=== PATIENT | female | born 1960 | race African-American/Black ===

== ENCOUNTER 2020-02-01 22:05 | Emergency (ER) | payer MEDICARE, SELFPAY ==
[2020-02-01 22:47] LABS: Bilirubin Negative (Negative); Blood, Urine Small (Negative); Clarity Slightly Cloudy (Clear); Glucose, Urine (Dipstick) Negative (Negative); Leukocyte Moderate (Negative); Nitrite Positive (Negative); Protein, Urine (Dipstick) Negative (Neg-Trace); Urobilinogen 0.2 mg/dL (Less than 2)
[2020-02-01 22:52] LABS: Bacteria/HPF 3+ HPF (None Seen); Squamous Epithelial 0-3 HPF (0-3)
== END 2020-02-01 23:05 | disposition home or self-care (01) ==
LOC: MADERS 22:05
DX: R30.0 Dysuria (principal); E78.5 Hyperlipidemia, unspecified; E78.00 Pure hypercholesterolemia, unspecified; E03.9 Hypothyroidism, unspecified; I10 Essential (primary) hypertension; J45.909 Unspecified asthma, uncomplicated; F17.210 Nicotine dependence, cigarettes, uncomplicated
CPT/HCPCS: 81003; 81015; 99283

== ENCOUNTER 2021-11-03 08:28 | Emergency (ER) | payer MEDICARE ==
[2021-11-03 09:31] LABS: ALT (SGPT) 14 U/L (8-55); AST (SGOT) 16 U/L (5-34); Albumin 4.6 g/dL (3.4-4.8); Alkaline Phosphatase 116 U/L (40-110); Anion Gap 15 mmol/L (10-20); BUN (Urea Nitrogen) 11 mg/dL (9.8-20.1); Bilirubin, Total 0.4 mg/dL (0.2-1.2); Calc. Creatinine Clearance 0 mL/min (70-130); Calcium 9.8 mg/dL (7.8-10.44); Carbon Dioxide 29 mmol/L (23-31); Chloride 101 mmol/L (98-107); Globulin 3.9 g/dL (2.4-3.5); Glucose 151 mg/dL (80-115); Lipase 4 U/L (8-78); Magnesium 1.9 mg/dL (1.6-2.6); Potassium 3.1 mmol/L (3.5-5.1); Protein, Total 8.5 g/dL (5.8-8.1); Sodium 142 mmol/L (136-145)
[2021-11-03 09:40] LABS: Eosinophils 1 % (0-10); Hemoglobin 15.2 g/dL (12.0-16.0); Lymphocytes 18 % (21-51); MDiff Complete? YES; Mean Corpuscular HGB CONC 30.8 g/dL (32.0-36.0); Mean Corpuscular Volume 84.1 fL (78.0-98.0); Mean Platelet Volume 7.7 fL (7.4-10.4); Monocytes 2 % (0-10); Neutrophil 65 % (42-75); Platelet Count 307 thou/uL (130-400); Platelet Morphology Comment Appears Adequate; RBC Distribution Width 14.5 % (11.5-14.5); RBC Morphology Normal; Reactive Lymphocytes 14 % (0-10); Red Blood Cell (RBC) Count 5.84 mill/uL (4.20-5.40); White Blood Cell (WBC) Count 6.7 thou/uL (4.8-10.8)
[2021-11-03] MEDS ORDERED: diphenhydrAMINE 50 MG/ML VIAL ONE (09:44)
[2021-11-03] MEDS ORDERED: Ondansetron PF 4 MG/2 ML Vial ONE (09:44)
[2021-11-03] MEDS ORDERED: Prochlorperazine 10 MG/2 ML VIAL ONE (09:44)
[2021-11-03] MEDS ORDERED: Sodium Chloride 0.9% 1,000 ML ONE (09:44)
[2021-11-03] MEDS ORDERED: Sodium Chloride 0.9% 500 ML ONE (10:36)
[2021-11-03] MEDS ORDERED: Potassium Chloride 10 MEQ TAB ONE (11:40)
[2021-11-03] MEDS ORDERED: Iopamidol 370 76% 100 ML VIAL ONE (11:43)
== END 2021-11-03 11:46 | disposition home or self-care (01) ==
LOC: MADERS 08:28
DX: R11.2 Nausea with vomiting, unspecified (principal); E27.9 Disorder of adrenal gland, unspecified; R19.7 Diarrhea, unspecified; D17.79 Benign lipomatous neoplasm of other sites; E78.5 Hyperlipidemia, unspecified; E03.9 Hypothyroidism, unspecified; I10 Essential (primary) hypertension; J45.909 Unspecified asthma, uncomplicated; F17.210 Nicotine dependence, cigarettes, uncomplicated
CPT/HCPCS: 74177; 80053; 83605; 83690; 83735; 83880; 85025; 96372; 96374; 96375; J0500; J0780; J1200; J2405; J7030; J7050; Q9967